=== PATIENT | male | born 1985 | race Caucasian/White ===

== ENCOUNTER 2017-03-03 16:55 | Emergency (ER) | payer MEDICAID ==
[~2017-03-03] VITALS: Ht 165.1 cm; Wt 117.7 kg
[2017-03-03 17:10] VITALS: BP 143/65; TEMP 98.8
[2017-03-03 18:13] VITALS: PULSE 80
== END 2017-03-03 18:14 | disposition home or self-care (01) ==
LOC: COL.ER 16:55
DX: F41.9 Anxiety disorder, unspecified (principal); F32.9 Major depressive disorder, single episode, unspecified; J45.909 Unspecified asthma, uncomplicated; F17.210 Nicotine dependence, cigarettes, uncomplicated

== ENCOUNTER 2017-03-06 00:19 | Emergency (ER) | payer MEDICAID ==
[~2017-03-06] VITALS: Ht 180.3 cm; Wt 106.7 kg
[2017-03-06 00:22] VITALS: BP 135/78; TEMP 97.7
[2017-03-06] MEDS ORDERED: ATIVAN 0.50.5 MG/TAB PO (00:44)
[2017-03-06 01:16] LABS: BASO # 0.1 (0.0-0.2); BASO % 0.7 % (0.0-2.0); EOS # 0.4 (0.0-0.7); EOS % 2.9 % (0-4.0); GRAN # 9.6 (1.4-6.5); GRAN % 64.9 % (42.2-75.2); HEMOGLOBIN 16.3 g/dl (13.5-18.0); LYMPH # 3.4 (1.2-3.4); LYMPH % 22.9 % (20.0-51.0); MEAN CELL VOLUME 88 fl (80.0-100.0); MEAN CORPUSCULAR HEMOGLOBIN 31 pg (27.0-31.0); MEAN CORPUSCULAR HGB CONC 35 g/dl (33.0-37.0); MEAN PLATELET VOLUME 10.2 fl (7.4-10.4); MONO # 1.2 (0.1-0.6); MONO % 8.2 % (1.7-9.3); PLATELET COUNT 326 K/mm3 (130-400); RED BLOOD COUNT 5.22 M/mm3 (4.20-5.60); WHITE BLOOD COUNT 14.8 K/mm3 (4.8-10.8)
[2017-03-06 01:45] LABS: ADJUSTED CALCIUM 9.1 mg/dL (8.4-10.2); ALANINE AMINOTRANSFERASE 37 U/L (21-72); ALBUMIN 5.5 gm/dL (3.5-5.0); ALKALINE PHOSPHATASE 65 U/L (50-136); ANION GAP 15 mmol/L (7-16); BILIRUBIN,TOTAL 1.5 mg/dL (0.0-1.0); BLOOD UREA NITROGEN 15 mg/dL (9-20); CALCIUM 10.3 mg/dL (8.4-10.2); CARBON DIOXIDE 20 mmol/L (22-30); CHLORIDE 107 mmol/L (98-107); CREATININE, serum 0.93 mg/dL (0.66-1.25); GLUCOSE 97 mg/dL (74-106); POTASSIUM 3.3 mmol/L (3.4-5.0); SODIUM 142 mmol/L (137-145); TOTAL PROTEIN 8.8 gm/dL (6.4-8.2)
[2017-03-06 01:56] LABS: TROPONIN-I < 0.012 ng/mL (0.000-0.034)
[2017-03-06 02:14] VITALS: PULSE 80
== END 2017-03-06 02:15 | disposition home or self-care (01) ==
LOC: COL.ER 00:19
PROVIDERS: Emergency Medicine
DX: F41.9 Anxiety disorder, unspecified (principal); R07.9 Chest pain, unspecified; F17.210 Nicotine dependence, cigarettes, uncomplicated; F15.10 Other stimulant abuse, uncomplicated

== ENCOUNTER 2017-03-06 17:54 | Emergency (ER) | payer MEDICAID ==
[~2017-03-06] VITALS: Ht 180.3 cm; Wt 108.6 kg
[~2017-03-06 17:54] MED LIST: ATIVAN 0.50.5 MG/TAB PO
[2017-03-06 17:58] VITALS: BP 151/83; TEMP 98.5
[2017-03-06 18:27] VITALS: PULSE 90
== END 2017-03-06 18:27 | disposition home or self-care (01) ==
LOC: COL.ER 17:54
DX: F41.9 Anxiety disorder, unspecified (principal); L74.512 Primary focal hyperhidrosis, palms; F17.210 Nicotine dependence, cigarettes, uncomplicated

== ENCOUNTER 2017-03-08 12:29 | Emergency (ER) | payer MEDICAID ==
[~2017-03-08] VITALS: Ht 180.3 cm; Wt 108.6 kg
[2017-03-08 12:32] VITALS: BP 143/77; TEMP 98.4
[2017-03-08] MEDS ORDERED: CELEXA10 MG PO (12:52)
[2017-03-08 13:51] VITALS: PULSE 96
== END 2017-03-08 13:52 | disposition home or self-care (01) ==
LOC: COL.ER 12:29
DX: F41.9 Anxiety disorder, unspecified (principal); R07.89 Other chest pain; F17.210 Nicotine dependence, cigarettes, uncomplicated

== ENCOUNTER 2017-03-09 11:00 | Emergency (ER) | payer MEDICAID ==
[~2017-03-09] VITALS: Ht 180.3 cm; Wt 108.6 kg
[~2017-03-09 11:00] MED LIST changes: +CELEXA10 MG PO
[2017-03-09 11:07] VITALS: BP 134/62; PULSE 79; TEMP 97.8
[2017-03-10] MEDS ORDERED: CELEXA 20MG20 MG/TAB PO (19:11)
== END 2017-03-09 12:15 | disposition home or self-care (01) ==
LOC: COL.ER 11:00
DX: F41.9 Anxiety disorder, unspecified (principal); F17.210 Nicotine dependence, cigarettes, uncomplicated

== ENCOUNTER 2017-03-10 18:54 | Emergency (ER) | payer MEDICAID ==
[~2017-03-10] VITALS: Ht 180.3 cm; Wt 110.5 kg
[2017-03-10 19:08] VITALS: BP 135/78; PULSE 95; TEMP 98.8
[2017-03-10] MEDS ORDERED: CELEXA 20MG20 MG/TAB PO (19:11)
== END 2017-03-10 19:54 | disposition left against medical advice (07) ==
LOC: COL.ER 18:54
DX: R51 Headache (principal)

== ENCOUNTER 2017-03-11 15:07 | Emergency (ER) | payer MEDICAID ==
[~2017-03-11] VITALS: Ht 180.3 cm; Wt 108.6 kg
[~2017-03-11 15:07] MED LIST changes: +CELEXA 20MG20 MG/TAB PO
[2017-03-11 15:11] VITALS: BP 139/66; PULSE 87; TEMP 98.6
== END 2017-03-11 16:56 | disposition home or self-care (01) ==
LOC: COL.ER 15:07
DX: F41.9 Anxiety disorder, unspecified (principal); F17.210 Nicotine dependence, cigarettes, uncomplicated

== ENCOUNTER 2017-03-13 09:29 | Emergency (ER) | payer MEDICAID ==
[~2017-03-13] VITALS: Ht 180.3 cm; Wt 110.5 kg
[2017-03-13 09:32] VITALS: TEMP 97.8
[2017-03-13 10:16] VITALS: BP 143/89; PULSE 85
== END 2017-03-13 10:22 | disposition home or self-care (01) ==
LOC: COL.ER 09:29
DX: F41.9 Anxiety disorder, unspecified (principal); F17.210 Nicotine dependence, cigarettes, uncomplicated